=== PATIENT | female | born 1990 | race African-American/Black ===

== ENCOUNTER 2017-05-22 02:41 | Emergency (ER) | payer MEDICAID ==
[~2017-05-22] VITALS: Ht 172.7 cm; Wt 65.0 kg
[~2017-05-22 02:41] MED LIST: CYCL1TAB29 PO; DICL75TA PO
[2017-05-22 02:46] VITALS: BP 109/62; PULSE 83; RESP 12; TEMP 98.6; O2SAT 100
[2017-05-22] MEDS ORDERED: BACT800T5 PO (03:14)
[2017-05-22] MEDS ORDERED: SULFAMETHOXAZOLE-TRIMETHOPRIM DS 800-160 MG TAB PO ONE (03:15)
--- NOTE | 2017-05-22 03:16 | PD ---
HPI Chief Complaint: Skin Problem Time Seen by Provider: 03:00 Travel History International Travel<30 days: No Contact w/Intl Traveler<30days: No Traveled to known affect area: No History of Present Illness HPI 26-year-old female presents for evaluation of an abscess in the right cheek. She first noticed a few days ago, gradually worsened since then. Painful, throbbing, worse with palpation. Denies drainage, fevers. No other complaints. PFSH Past Medical History Medical History: Denies Significant Hx Diminished Hearing: No ?: Unknown LMP: 04/30/2017 : 1 Para: 1 Past Surgical History Surgical History: No Previous Surgery Social History Alcohol Use: No Tobacco Use: Yes Substance Use: No Allergies-Medications (Allergen,Severity, Reaction): Coded Allergies: No Known Allergies (Verified , 05/22/17) Reported Meds & Prescriptions Reported Meds & Active Scripts Active Review of Systems General / Constitutional: No: Fever Skin: Positive Other (soft tissue swelling, pain) Physical Exam Narrative GENERAL: Well-nourished female in no acute distress SKIN: Warm and dry. Less than 1 cm fluctuant abscess right lower cheek. No drainage. HEAD: Atraumatic. Normocephalic. EYES: Pupils equal and round. No scleral icterus. No injection or drainage. ENT: No nasal bleeding or discharge. Mucous membranes pink and moist. NECK: Trachea midline. No JVD. Data Data Last Documented VS Vital Signs Date Time Temp Pulse Resp B/P Pulse Ox O2 Delivery O2 Flow Rate FiO2 05/22/17 02:46 98.6 83 12 109/62 100 Room Air Orders Sulfamet-Trimeth Ds 800-160 Mg (Bactrim (05/22/17 03:15) MDM Medical Decision Making Medical Screen Exam Complete: Yes Emergency Medical Condition: Yes Medical Record Reviewed: Yes Differential Diagnosis Abscess, cellulitis, cyst Narrative Course The patient has a small abscess on her right lower cheek. After verbal consent was obtained a needle aspiration was performed. The patient is being discharged with Bactrim. Procedures Procedure Narrative Needle aspiration of ABSCESS: The area was prepped and was sterilely draped. An 18-gauge needle was used in order to aspirate the facial abscess. Patient tolerated procedure well. Diagnosis Primary Impression: Facial abscess Additional Instructions: Medication as prescribed, warm compresses several times a day 10 minutes at a time, return for any emergent medical conditions. Med/Other Pt SpecificInfo: Prescription(s) given Scripts Sulfamethoxazole-Trimethoprim (Bactrim DS)800-160 Mg Tab1 Tab PO BID #14 TAB Ref 0 Prov:Catherine Dangelo MD 05/22/17 Disposition: 01 DISCHARGE HOME Condition: Stable Tr Paulino May 22, 2017 03:16
== END 2017-05-22 03:45 | disposition home or self-care (01) ==
LOC: NEPD 02:41
DX: L02.01 Cutaneous abscess of face (principal); F17.290 Nicotine dependence, other tobacco product, uncomplicated
CPT/HCPCS: 10160